=== PATIENT | male | born 1935 | race Caucasian/White ===

== ENCOUNTER → 2017-08-15 | Day surgery (SDC) | payer MEDICARE ==
[~2017-08-15] MED LIST: ASPI325T PO; CLON0.1T PO; COQ150CA PO; FISHCAP4 PO; FURO40TA PO; GARL1000 PO; GLIM4TAB PO; LIDOCAINE HCL 1% 30 ML VIAL NERV BLOCK ONE; MAGN500T2 PO; METF500T PO; METO100T PO; PROPOFOL 200 MG/20 ML AMP IV ONE; SACC1CAP3 PO; SAWCAP2 PO; SODIUM CHLORIDE 0.9% 10 ML VIAL ONE; TRIAMCINOLONE ACETONIDE 40 MG/ML VIAL NERV BLOCK ONE; VALS1TAB70 PO; VITA100036 PO; ZETI10TA5 PO; methylPREDNISolone ACETATE 40 MG/ML VIAL IM ONE
--- NOTE | 2017-08-16 10:09 | M6 ---
cc: Guille CABA DATE 08/15/2017 DATE OF 1935 PROCEDURE Fluoroscopically guided injection left piriformis and sciatic nerve. PROCEDURE NOTE History and physical was completed and signed. Consent was signed. Procedure site was marked. Medications were listed and reconciled. Pain score was recorded. Allergies were noted. Time out was taken. Fluoroscopy time was recorded where applicable. Sedation was administered or directed by Dr. Caba. The patient was given oxygen. The patient was monitored by a registered nurse. Total procedure time was greater than 15 minutes. IV was started, blood pressure cuff, pulse oximeter and EKG were applied. The patient was placed in the prone position on a Sander table, sedated with small amounts of propofol titrated to effect. Vital signs were monitored and remained stable throughout the procedure. The lumbar area was prepped with alcohol and 10% Betadine solution, and draped with sterile drapes. Fluoroscopy was used to visualize the left acetabulum and the sciatic notch. Then a 3-1/2-inch 22-gauge spinal needle was advanced down to the dorsal cephalad one-third of the acetabulum and slightly redirected toward the sciatic notch. There was negative aspiration for blood or any other type of fluid and the patient was given 10 mL of half percent Xylocaine, 40 mg of Depo-Medrol, 20 mg of Kenalog. Following the procedure, the patient was taken to the recovery room with stable vital signs neurologically intact. MD SHAISTA Barbour/TRISTAN /9:12 AM /10:03 AM
== END | disposition home or self-care (01) ==
LOC: PHSDC 06:37
PROVIDERS: ATTEND Pain Medicine Interventional Pain Medicine
DX: M54.5 Low back pain (principal); M25.552 Pain in left hip
CPT/HCPCS: 64445; 99152; J1030; J3301